=== PATIENT | male | born 1970 | race Caucasian/White ===

== ENCOUNTER 2022-03-02 18:55 | Emergency (ER) | payer OTHER ==
[~2022-03-02] VITALS: Ht 185.4 cm; Wt 99.8 kg
[2022-03-02] MEDS ORDERED: IBUPROFEN 400 MG TABLET ONE (19:35)
[2022-03-02] MEDS: IBUPROFEN 400 MG TABLET PO ONE (19:38)
--- NOTE | 2022-03-02 21:01 | NUR ---
dr reed on the phone with danielle lima for ortho consult
[2022-03-02] MEDS ORDERED: IBUP-1957 PO (21:08)
--- NOTE | 2022-03-02 21:13 | NUR ---
SPLINT APPLIED TO R WRIST
[2022-03-02 21:14] VITALS: BP 131/80
--- NOTE | 2022-03-02 21:14 | NUR ---
Patient discharged to skilled nursing in stable condition. Written and verbal after care instructions given. Patient verbalizes understanding of instruction.
[2022-03-02] MEDS ORDERED: HYDROCODONE/APAP 5/325MG TABLET ONE (21:20)
[2022-03-02] MEDS: HYDROCODONE/APAP 5/325MG TABLET PO ONE (21:22)
== END 2022-03-02 21:20 ==
LOC: ER 19:01
DX: M25.531 Pain in right wrist (principal); W06.XXXA Fall from bed, initial encounter; Y93.89 Activity, other specified; Y92.89 Other specified places as the place of occurrence of the external cause; Y99.8 Other external cause status
CPT/HCPCS: 73110